=== PATIENT | male | born 1990 | race Caucasian/White ===

== ENCOUNTER 2016-05-10 23:04 | Emergency (ER) | payer OTHER ==
--- NOTE | 2016-05-11 02:58 | ED NURSING NOTES ---
Clinical Report - Nurses [facility] [address] [place] [address] 05/10/2016 23:06 Patient: MARISELA SAM TRIAGE Triage time 23:14. Acuity: LEVEL 3. Chief Complaint: ABDOMINAL PAIN. --23:17 Salvatore Miranda R.N. 23:11 05/10/16. BP: 122/84. HR: 106. RR: 16. O2 saturation: 100%. Temp: 98.2 F. Pain level now 10/22. --23:17 Salvatore Miranda R.N. Weight: 108.8 kg stated. Height/Length: 72 inches Per Patient. BMI: 32.6. --23:12 Salvatore Miranda R.N. Medications Albuterol Sulfate HFA Inhalation. --23:15 Salvatore Miranda R.N. Medication/allergy information source: the patient. --23:17 Salvatore Miranda R.N. Allergies Amoxicillin. --23:15 Salvatore Miranda R.N. History Arrived by private vehicle. Historian: patient. This started just prior to arrival. ( Pt woke up due to lower back pain and left sided flank pain. Last bm was this am and was dark, but not black or bloody stool. Pt has pain on urination about a week ago, but denies any pain on urination at this time. Pt denied any discharge from the penis. No n/v/d.). He has had abdominal pain. 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 PAST MEDICAL HX: Immunizations: up-to-date. SOCIAL HX: Never smoker. History of occasional drug use: marijuana. Recently used drugs days ago. No alcohol use. --23:17 Salvatore Miranda R.N. Interventions ID band on patient. To treatment room. --23:17 Salvatore Miranda R.N. PHYSICAL ASSESSMENT GENERAL / NEURO / PSYCH: Alert. Oriented X 4. Appears in no acute distress. HEENT: Mucous membranes are pink. RESPIRATORY: Respirations not labored. Breath sounds within normal limits. CVS: Normal sinus rhythm noted. Capillary refill less than 2 seconds. GI / : Abdomen soft and nontender. Bowel sounds within normal limits. Normal genitalia. ( Last bm was this am and dark in color.). SKIN: Skin is warm and dry. --23:18 Salvatore Miranda R.N. NURSING PROGRESS NOTES The plan of care for this patient has been created. Patient gowned. Head of bed elevated. Two patient identifiers checked. Call light placed in reach. Side rails up x 1. Bed placed in lowest position. --23:19 Salvatore Miranda R.N. 23:21 05/10/2016 Site #1 started via IV in the left antecubital space with an 18g angiocath, with aseptic technique and good blood return; one attempt. Blood drawn: rainbow set. Labeled in the presence of the patient and sent to the lab. Saline lock flushed with 10 mL saline. --23:21 Salvatore Miranda R.N. 00:54 05/11/16. BP: 121/68. HR: 97. RR: 15. O2 saturation: 99%. Pain level now 5/10. --00:55 Salvatore Miranda R.N. ( Pt is laying in bed and no increase in pain.). --00:55 Salvatore Miranda R.N. 02:56 05/11/2016 Started 500 mg of Levaquin (Levofloxacin) IVPB; at 100 mL/hr over 1 hour(s) via site #1 via IV pump. Allergies verified and confirmed 5 rights. IV patency established. IV site checked: no pain, redness, or swelling. IV flushed thoroughly pre- and post-medication administration. --02:56 Salvatore Miranda R.N. 03:45 05/11/2016 Levaquin IVPB Discontinued: bag #1 completed upon discharge. Total amount infused: 100 mL. IV patency established. IV site checked: no pain, redness, or swelling. IV flushed thoroughly. --03:45 Salvatore Miranda R.N. DISPOSITION / DISCHARGE 03:45 05/11/2016 Site #1 removed upon discharge. Catheter intact. Bandaid applied. --03:48 Salvatore Miranda R.N. Departure time: 03:48. Condition at departure: improved. No learning barriers present. Discharge instructions provided and reviewed with the patient. Reviewed warnings. Reviewed medication(s). Treatments reviewed. Patient verbalized understanding. Written instructions provided in Libyan. The patient was discharged by the physician. He was discharged home and accompanied by spouse. He left the Emergency Department ambulatory and via private vehicle. Patient driving. --03:51 Salvatore Miranda R.N. 03:45 05/11/16. BP: 124/81. HR: 65. RR: 15. O2 saturation: 98%. Pain level now 07/23. --03:51 Salvatore Miranda R.N. Locked/Released at 05/11/2016 3:52 by Salvatore Miranda R.N.
--- NOTE | 2016-05-11 02:58 | ED ORDER SUMMARY ---
..... Patient: MARISELA SAM OrderSheet [facility] VisitID: [id number] [address] [place] [address] 25y, M Registration Date/Time: 05/10/2016 ORDER SHEET Weight: 108.8 kg (stated) Allergies: Amoxicillin GENERAL ORDERS: CBC w Diff Urgent (23:43 05/10/2016 Roni Rome) (23:48 TLewis R.N.) CMP Urgent (23:43 05/10/2016 Roni Rome) (23:48 TLewis R.N.) UA-Culture if indicated Urgent (23:43 05/10/2016 Roni Rome) (Ack 23:49 Taiwo ER Pricing Manager) (2:53 TLewis R.N.) Amylase Urgent (23:43 05/10/2016 Roni Rome) (23:48 TLewis R.N.) Lipase Urgent (23:43 05/10/2016 Roni Rome) (23:48 TLewis R.N.) CT Abd/Pel wo Cont Urgent (00:30 05/11/2016 Roni Rome) (Ack 0:33 Taiwo ER Pricing Manager) (1:11 Jaspal) MEDICATION ORDERS: IV FLUIDS: IV Saline Lock (23:43 05/10/2016 Roni Rome) (23:48 TLewis R.N.) Levaquin IV 500 mg/100mL (NOW) (02:41 05/11/2016 Roni Rome) (2:56 TLewis R.N.) ORDER SHEET NOTES: [Electronically signed by Salvatore Miranda R.N. (03:52 05/11/2016)] [Electronically signed by Vijay Burton Dr. (05:01 05/11/2016)] [Electronically locked/signed by Salvatore Miranda R.N. (03:52 05/11/2016)]
--- NOTE | 2016-05-11 02:58 | ED CLINICAL REPORT ---
Clinical Report - Physicians/Mid Levels [facility] [address] [place] [address] 05/10/2016 23:06 Patient: MARISELA SAM Time Seen: 23:10; initial patient contact. Arrived- By private vehicle. Historian- patient. HISTORY OF PRESENT ILLNESS Chief Complaint: FLANK PAIN. This started today and is still present. It was gradual in onset and has been constant. At its maximum, severity described as mild. When seen in the E.D., severity described as mild. Modifying factors. Not worsened by anything. Not relieved by anything. It is described as sharp. No radiation. It is described as located in the left abdomen and the left flank. No nausea, loss of appetite, vomiting or diarrhea. Similar symptoms previously: None. Recent medical care: Not recently seen/assessed. REVIEW OF SYSTEMS No constipation, difficulty with urination, urinary frequency, fever or chills. He has had pain on urination. All systems otherwise negative, except as recorded above. PAST HISTORY Asthma. Surgeries: No history of previous surgery. Additional Surgeries: no known surgeries. Medications: Albuterol Sulfate HFA Inhalation. Allergies: Amoxicillin. SOCIAL HISTORY Never smoker. History of occasional drug use: marijuana. No alcohol use. ADDITIONAL NOTES The nursing notes have been reviewed with agreement regarding the chief complaint, PMH and patient medications and allergies. PHYSICAL EXAM Vital Signs: 05/10/2016 23:11 BP: 122/84. HR: 106. RR: 16. O2 saturation: 100%. Temp: 98.2 F. Have been reviewed. Blood pressure normal. Tachycardic. Respiratory rate normal. Temperature normal. Oxygen saturation normal. Appearance: Alert. Oriented X3. No acute distress. Eyes: Eyes normal inspection. ENT: Pharynx normal. CVS: Normal heart rate and rhythm. Heart sounds normal. Respiratory: No respiratory distress. Breath sounds normal. Abdomen: Soft. Mild tenderness in the left side of the abdomen. No guarding or rebound tenderness. Bowel sounds normal. No organomegaly. No mass. Back: Normal inspection. No CVA tenderness. Skin: Skin warm and dry. Normal skin color. No rash. Extremities: No lower extremity edema. Neuro: Oriented X 3. LABS, X-RAYS, AND EKG Abdominal CT: Mild changes of bilateral collecting system, ? UTI. Study type: renal stone evaluation. Abdominal CT performed without contrast. Laboratory Tests: UA-Culture if indicated: (ZAIRA: 05/10/2016 22:30) ( [facility] 05[facility]11[facility] 00:59) Final results Test Result Flag Units (Reference) URINE COLOR YELLOW URINE APPEARANCE CLEAR URINE GLUCOSE NEGATIVE (NEGATIVE) URINE BILIRUBIN NEGATIVE (NEGATIVE) URINE KETONE 1+ (NEGATIVE) URINE SPECIFIC GRAVITY 1.020 (1.010-1.030) URINE PH 5.5 (5.0-8.0) URINE PROTEIN 1+ (NEGATIVE) URINE UROBILINOGEN 0.2 EU/dL (0.2-1.0) URINE NITRITE NEGATIVE (NEGATIVE) URINE BLOOD 3+ (NEGATIVE) URINE LEUK ESTERASE POSITIVE (NEGATIVE) URINE RBC 50-75 rbc/hpf (0-1) URINE WBC 50-75 wbc/hpf (0-1) URINE EPITHELIAL CELLS 1-3 EPI/hpf (0-5) URINE BACTERIA MODERATE (2+ TO 3+) (NONE SEEN) URINE COMMENT CULTURE INDICATED URINE CULTURES ARE SET-UP BASED ON THE FOLLOWING CRITERIA:POSITIVE NITRITEPOSITIVE LEUKOCYTE ESTERASEGREATER THAN 10 WHITE BLOOD CELLSMODERATE (2+) OR GREATER BACTERIA CBC w Diff: (ZAIRA: 05/10/2016 22:30) ( [facility] 05/10/2016 23:59) Final results Test Result Flag Units (Reference) WHITE BLOOD COUNT 9.6 K/uL (4.5-11.5) RED BLOOD COUNT 5.43 M/uL (4.50-5.90) HEMOGLOBIN 16.1 gm/dL (13.5-17.5) HEMATOCRIT 47.2 % (41.0-53.0) MEAN CELL VOLUME 87 fL (80-100) MEAN CORPUSCULAR HGB 30 pg (26-34) MEAN CORPUSCULAR HGB CONC 34 g/dL (31-37) RED CELL DISTRIBUTION WIDTH 12.8 % (11.6-14.8) PLATELET COUNT 276 K/uL (150-400) NEUTROPHIL % 74.7 % (50-75) LYMPH % 17.1 L % (25-40) MONO % 6.5 % (3-14) EOSINOPHIL % 1.5 % (0-4) BASOPHIL % 0.2 % (0-2) CMP: (ZAIRA: 05/10/2016 22:30) ( MsgRcvd 05/11/2016 00:06) Final results Test Result Flag Units (Reference) GLUCOSE 98 mg/dL (70-110) BUN 20 H mg/dL (7-18) CREATININE 1.1 mg/dL (0.6-1.3) Estimated GFR >60 mL/min Estimated GFR- >60 mL/min Note: Persistent reduction over 3 months in eGFR<60 mL/min/1.73 m2 defines CKD. Patients with eGFR values>=60 mL/min/1.73 m2 may also have CKD if evidence ofpersistent proteinuria. Additional information may be foundat www.kidney.org. SODIUM 140 mmol/L (136-145) POTASSIUM 3.5 mmol/L (3.5-5.1) CHLORIDE 102 mmol/L (98-107) CARBON DIOXIDE 29 mmol/L (21-32) CALCIUM 8.8 mg/dL (8.5-10.1) TOTAL PROTEIN 8.0 g/dL (6.4-8.2) ALBUMIN 4.3 g/dL (3.3-5.0) BILIRUBIN, TOTAL 0.3 mg/dL (0.0-1.0) ALKALINE PHOSPHATASE 71 U/L (46-116) AST (SGOT) 23 U/L (15-37) ALT (SGPT) 48 U/L (12-78) LIPASE 161 U/L (73-393) AMYLASE 40 U/L (25-115) . PROGRESS AND PROCEDURES Disposition: Discharged home in good condition. Condition: good. CLINICAL IMPRESSION Acute urinary tract infection with cystitis. INSTRUCTIONS Prescription Medications: Levaquin 500 mg: take 1 tab orally every day for 7 days. No refills. Substitution is permissible. Follow-up: Screening today revealed the patient's blood pressure to be in the pre-hypertensive range. The patient should follow up with a primary care provider for blood pressure management. Follow-up with: Nilton Valentino MD, [facility], , [facility], [address] [place] [address], [place] [phone] Follow up in about four days. Call for an appointment. (Electronically signed by Vijay Burton Dr. 05/11/2016 5:01)
--- NOTE | 2016-05-11 02:58 | ED NURSING NOTES ---
Clinical Report - Nurses [facility] [address] [place] [address] 05/10/2016 23:06 Patient: MARISELA SAM TRIAGE Triage time 23:14. Acuity: LEVEL 3. Chief Complaint: ABDOMINAL PAIN. --23:17 Salvatore Miranda R.N. 23:11 05/10/16. BP: 122/84. HR: 106. RR: 16. O2 saturation: 100%. Temp: 98.2 F. Pain level now 10/22. --23:17 Salvatore Miranda R.N. Weight: 108.8 kg stated. Height/Length: 72 inches Per Patient. BMI: 32.6. --23:12 Salvatore Miranda R.N. Medications Albuterol Sulfate HFA Inhalation. --23:15 Salvatore Miranda R.N. Medication/allergy information source: the patient. --23:17 Salvatore Miranda R.N. Allergies Amoxicillin. --23:15 Salvatore Miranda R.N. History Arrived by private vehicle. Historian: patient. This started just prior to arrival. ( Pt woke up due to lower back pain and left sided flank pain. Last bm was this am and was dark, but not black or bloody stool. Pt has pain on urination about a week ago, but denies any pain on urination at this time. Pt denied any discharge from the penis. No n/v/d.). He has had abdominal pain. 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 PAST MEDICAL HX: Immunizations: up-to-date. SOCIAL HX: Never smoker. History of occasional drug use: marijuana. Recently used drugs days ago. No alcohol use. --23:17 Salvatore Miranda R.N. Interventions ID band on patient. To treatment room. --23:17 Salvatore Miranda R.N. PHYSICAL ASSESSMENT GENERAL / NEURO / PSYCH: Alert. Oriented X 4. Appears in no acute distress. HEENT: Mucous membranes are pink. RESPIRATORY: Respirations not labored. Breath sounds within normal limits. CVS: Normal sinus rhythm noted. Capillary refill less than 2 seconds. GI / : Abdomen soft and nontender. Bowel sounds within normal limits. Normal genitalia. ( Last bm was this am and dark in color.). SKIN: Skin is warm and dry. --23:18 Salvatore Miranda R.N. NURSING PROGRESS NOTES The plan of care for this patient has been created. Patient gowned. Head of bed elevated. Two patient identifiers checked. Call light placed in reach. Side rails up x 1. Bed placed in lowest position. --23:19 Salvatore Miranda R.N. 23:21 05/10/2016 Site #1 started via IV in the left antecubital space with an 18g angiocath, with aseptic technique and good blood return; one attempt. Blood drawn: rainbow set. Labeled in the presence of the patient and sent to the lab. Saline lock flushed with 10 mL saline. --23:21 Salvatore Miranda R.N. 00:54 05/11/16. BP: 121/68. HR: 97. RR: 15. O2 saturation: 99%. Pain level now 5/10. --00:55 Salvatore Miranda R.N. ( Pt is laying in bed and no increase in pain.). --00:55 Salvatore Miranda R.N. 02:56 05/11/2016 Started 500 mg of Levaquin (Levofloxacin) IVPB; at 100 mL/hr over 1 hour(s) via site #1 via IV pump. Allergies verified and confirmed 5 rights. IV patency established. IV site checked: no pain, redness, or swelling. IV flushed thoroughly pre- and post-medication administration. --02:56 Salvatore Miranda R.N. 03:45 05/11/2016 Levaquin IVPB Discontinued: bag #1 completed upon discharge. Total amount infused: 100 mL. IV patency established. IV site checked: no pain, redness, or swelling. IV flushed thoroughly. --03:45 Salvatore Miranda R.N. DISPOSITION / DISCHARGE 03:45 05/11/2016 Site #1 removed upon discharge. Catheter intact. Bandaid applied. --03:48 Salvatore Miranda R.N. Departure time: 03:48. Condition at departure: improved. No learning barriers present. Discharge instructions provided and reviewed with the patient. Reviewed warnings. Reviewed medication(s). Treatments reviewed. Patient verbalized understanding. Written instructions provided in [place]. The patient was discharged by the physician. He was discharged home and accompanied by spouse. He left the Emergency Department ambulatory and via private vehicle. Patient driving. --03:51 Salvatore Miranda R.N. 03:45 05/11/16. BP: 124/81. HR: 65. RR: 15. O2 saturation: 98%. Pain level now 07/23. --03:51 Salvatore Miranda R.N. Locked/Released at 05/11/2016 3:52 by Salvatore Miranda R.N.
--- NOTE | 2016-05-11 02:58 | ED ORDER SUMMARY ---
..... Patient: MARISELA SAM OrderSheet [facility] VisitID: [id number] [address] [place] [address] 25y, M Registration Date/Time: 05/10/2016 ORDER SHEET Weight: 108.8 kg (stated) Allergies: Amoxicillin GENERAL ORDERS: CBC w Diff Urgent (23:43 05/10/2016 Roni Rome) (23:48 TLewis R.N.) CMP Urgent (23:43 05/10/2016 Roni Rome) (23:48 TLewis R.N.) UA-Culture if indicated Urgent (23:43 05/10/2016 Roni Rome) (Ack 23:49 Taiwo ER Public Services Assistant) (2:53 TLewis R.N.) Amylase Urgent (23:43 05/10/2016 Roni Rome) (23:48 TLewis R.N.) Lipase Urgent (23:43 05/10/2016 Roni Rome) (23:48 TLewis R.N.) CT Abd/Pel wo Cont Urgent (00:30 05/11/2016 Roni Rome) (Ack 0:33 Taiwo ER Public Services Assistant) (1:11 Jaspal) MEDICATION ORDERS: IV FLUIDS: IV Saline Lock (23:43 05/10/2016 Roni Rome) (23:48 TLewis R.N.) Levaquin IV 500 mg/100mL (NOW) (02:41 05/11/2016 Roni Rome) (2:56 TLewis R.N.) ORDER SHEET NOTES: [Electronically signed by Salvatore Miranda R.N. (03:52 05/11/2016)] [Electronically signed by Vijay Burton Dr. (05:01 05/11/2016)] [Electronically locked/signed by Salvatore Miranda R.N. (03:52 05/11/2016)]
--- NOTE | 2016-05-11 02:58 | ED CLINICAL REPORT ---
Clinical Report - Physicians/Mid Levels [facility] [address] [place] [place] [address] 05/10/2016 23:06 Patient: MARISELA SAM Time Seen: 23:10; initial patient contact. Arrived- By private vehicle. Historian- patient. HISTORY OF PRESENT ILLNESS Chief Complaint: FLANK PAIN. This started today and is still present. It was gradual in onset and has been constant. At its maximum, severity described as mild. When seen in the E.D., severity described as mild. Modifying factors. Not worsened by anything. Not relieved by anything. It is described as sharp. No radiation. It is described as located in the left abdomen and the left flank. No nausea, loss of appetite, vomiting or diarrhea. Similar symptoms previously: None. Recent medical care: Not recently seen/assessed. REVIEW OF SYSTEMS No constipation, difficulty with urination, urinary frequency, fever or chills. He has had pain on urination. All systems otherwise negative, except as recorded above. PAST HISTORY Asthma. Surgeries: No history of previous surgery. Additional Surgeries: no known surgeries. Medications: Albuterol Sulfate HFA Inhalation. Allergies: Amoxicillin. SOCIAL HISTORY Never smoker. History of occasional drug use: marijuana. No alcohol use. ADDITIONAL NOTES The nursing notes have been reviewed with agreement regarding the chief complaint, PMH and patient medications and allergies. PHYSICAL EXAM Vital Signs: 05/10/2016 23:11 BP: 122/84. HR: 106. RR: 16. O2 saturation: 100%. Temp: 98.2 F. Have been reviewed. Blood pressure normal. Tachycardic. Respiratory rate normal. Temperature normal. Oxygen saturation normal. Appearance: Alert. Oriented X3. No acute distress. Eyes: Eyes normal inspection. ENT: Pharynx normal. CVS: Normal heart rate and rhythm. Heart sounds normal. Respiratory: No respiratory distress. Breath sounds normal. Abdomen: Soft. Mild tenderness in the left side of the abdomen. No guarding or rebound tenderness. Bowel sounds normal. No organomegaly. No mass. Back: Normal inspection. No CVA tenderness. Skin: Skin warm and dry. Normal skin color. No rash. Extremities: No lower extremity edema. Neuro: Oriented X 3. LABS, X-RAYS, AND EKG Abdominal CT: Mild changes of bilateral collecting system, ? UTI. Study type: renal stone evaluation. Abdominal CT performed without contrast. Laboratory Tests: UA-Culture if indicated: (ZAIRA: 05/10/2016 22:30) ( [facility] 05/11/2016 00:59) Final results Test Result Flag Units (Reference) URINE COLOR YELLOW URINE APPEARANCE CLEAR URINE GLUCOSE NEGATIVE (NEGATIVE) URINE BILIRUBIN NEGATIVE (NEGATIVE) URINE KETONE 1+ (NEGATIVE) URINE SPECIFIC GRAVITY 1.020 (1.010-1.030) URINE PH 5.5 (5.0-8.0) URINE PROTEIN 1+ (NEGATIVE) URINE UROBILINOGEN 0.2 EU/dL (0.2-1.0) URINE NITRITE NEGATIVE (NEGATIVE) URINE BLOOD 3+ (NEGATIVE) URINE LEUK ESTERASE POSITIVE (NEGATIVE) URINE RBC 50-75 rbc/hpf (0-1) URINE WBC 50-75 wbc/hpf (0-1) URINE EPITHELIAL CELLS 1-3 EPI/hpf (0-5) URINE BACTERIA MODERATE (2+ TO 3+) (NONE SEEN) URINE COMMENT CULTURE INDICATED URINE CULTURES ARE SET-UP BASED ON THE FOLLOWING CRITERIA:POSITIVE NITRITEPOSITIVE LEUKOCYTE ESTERASEGREATER THAN 10 WHITE BLOOD CELLSMODERATE (2+) OR GREATER BACTERIA CBC w Diff: (ZAIRA: 05/10/2016 22:30) ( [facility] 05/10/2016 23:59) Final results Test Result Flag Units (Reference) WHITE BLOOD COUNT 9.6 K/uL (4.5-11.5) RED BLOOD COUNT 5.43 M/uL (4.50-5.90) HEMOGLOBIN 16.1 gm/dL (13.5-17.5) HEMATOCRIT 47.2 % (41.0-53.0) MEAN CELL VOLUME 87 fL (80-100) MEAN CORPUSCULAR HGB 30 pg (26-34) MEAN CORPUSCULAR HGB CONC 34 g/dL (31-37) RED CELL DISTRIBUTION WIDTH 12.8 % (11.6-14.8) PLATELET COUNT 276 K/uL (150-400) NEUTROPHIL % 74.7 % (50-75) LYMPH % 17.1 L % (25-40) MONO % 6.5 % (3-14) EOSINOPHIL % 1.5 % (0-4) BASOPHIL % 0.2 % (0-2) CMP: (ZAIRA: 05/10/2016 22:30) ( MsgRcvd 05/11/2016 00:06) Final results Test Result Flag Units (Reference) GLUCOSE 98 mg/dL (70-110) BUN 20 H mg/dL (7-18) CREATININE 1.1 mg/dL (0.6-1.3) Estimated GFR >60 mL/min Estimated GFR- >60 mL/min Note: Persistent reduction over 3 months in eGFR<60 mL/min/1.73 m2 defines CKD. Patients with eGFR values>=60 mL/min/1.73 m2 may also have CKD if evidence ofpersistent proteinuria. Additional information may be foundat www.kidney.org. SODIUM 140 mmol/L (136-145) POTASSIUM 3.5 mmol/L (3.5-5.1) CHLORIDE 102 mmol/L (98-107) CARBON DIOXIDE 29 mmol/L (21-32) CALCIUM 8.8 mg/dL (8.5-10.1) TOTAL PROTEIN 8.0 g/dL (6.4-8.2) ALBUMIN 4.3 g/dL (3.3-5.0) BILIRUBIN, TOTAL 0.3 mg/dL (0.0-1.0) ALKALINE PHOSPHATASE 71 U/L (46-116) AST (SGOT) 23 U/L (15-37) ALT (SGPT) 48 U/L (12-78) LIPASE 161 U/L (73-393) AMYLASE 40 U/L (25-115) . PROGRESS AND PROCEDURES Disposition: Discharged home in good condition. Condition: good. CLINICAL IMPRESSION Acute urinary tract infection with cystitis. INSTRUCTIONS Prescription Medications: Levaquin 500 mg: take 1 tab orally every day for 7 days. No refills. Substitution is permissible. Follow-up: Screening today revealed the patient's blood pressure to be in the pre-hypertensive range. The patient should follow up with a primary care provider for blood pressure management. Follow-up with: Nilton Valentino MD, Family [facility], , [facility], [address] [place] [address], [place] [id number] Follow up in about four days. Call for an appointment. (Electronically signed by Vijay Burton Dr. 05/11/2016 5:01)
--- NOTE | 2016-05-11 05:01 | ED MAR SUMMARY ---
..... Medication Administration [facility] [address] [place] [address] Patient: MARISELA SAM Visit ID: [id number] 25y, M Weight: 108.8 kg Height/Length: 72 in BMI: 32.6 ALLERGIES: Amoxicillin Start 02:56 05/11/2016 Salvatore Miranda R.N., Stop 03:45 05/11/2016 Salvatore Miranda R.N. Medication Administered: LEVAQUIN [IVPB] (LEVOFLOXACIN), Dose: 500 mg IVPB over 1 hour(s), Rate: 100 mL/hr, Site: #1 left AC. Medication Ordered: Levaquin IV 500 mg/100mL (NOW).
--- NOTE | 2016-05-11 05:01 | ED DISCHARGE INSTRUCTIONS ---
Patient: MARISELA SAM General Instructions [facility] VisitID: [id number] [place] [address] 25y, M Registration Date/Time: 05/10/2016 Acute urinary tract infection with cystitis. INSTRUCTIONS Prescription Medications: Levaquin 500 mg: take 1 tab orally every day for 7 days. No refills. Substitution is permissible. Follow-up: Screening today revealed the patient's blood pressure to be in the pre-hypertensive range. The patient should follow up with a primary care provider for blood pressure management. Follow-up with: Nilton Valentino MD, [facility], , [facility], [address] [place], [place] [id number] Follow up in about four days. Call for an appointment. ADDITIONAL INFORMATION Bladder Infection,Male (Adult) A bladder infection ("cystitis" or "UTI") usually causes a constant urge to urinate, and a burning when passing urine. Urine may be cloudy, smelly or dark. There may be also be pain in the lower abdomen. Cystitis in males is not common. It may be caused by a partial blockage in the urinary system that keeps the bladder from emptying completely. This is most often related to an enlarged prostate gland. Home Care: Drink lots of fluids (at least 6-8 glasses a day). This will flush the bacteria out of your bladder. Avoid sexual intercourse until your symptoms are gone. Avoid caffeine, alcohol, and spicy foods. They could irritate the bladder. A bladder infection is treated with antibiotics. You may also be given Pyridium (generic - phenazopyridine) to reduce burning with urination. This will cause urine to become a bright orange color, which can stain clothing. Follow Up with your doctor or this facility if ALL symptoms have not cleared within five days. It is important to keep your follow up appointment to discuss with your doctor the need for further tests of the urinary tract. Get Prompt Medical Attention if any of the following occur: Fever of 100.4F (38C) or higher, or as directed by your healthcare provider No improvement by the third day of treatment Increasing back or abdominal pain Repeated vomiting; unable to keep medicine down Weakness, dizziness or fainting Levofloxacin Oral tablet What is this medicine? LEVOFLOXACIN (ronel lyons JESSICA menjivar) is a quinolone antibiotic. It is used to treat certain kinds of bacterial infections. It will not work for colds, flu, or other viral infections. How should I use this medicine? Take this medicine by mouth with a full glass of water. Follow the directions on the prescription label. This medicine can be taken with or without food. Take your medicine at regular intervals. Do not take your medicine more often than directed. Do not skip doses or stop your medicine early even if you feel better. Do not stop taking except on your doctor's advice. A special MedGuide will be given to you by the pharmacist with each prescription and refill. Be sure to read this information carefully each time. Talk to your marketing sales supervisor regarding the use of this medicine in children. While this drug may be prescribed for children as young as 6 months for selected conditions, precautions do apply. What side effects may I notice from receiving this medicine? Side effects that you should report to your doctor or health care connector as soon as possible: -allergic reactions like skin rash or hives, swelling of the face, lips, or tongue -changes in vision -confusion, nightmares or hallucinations -difficulty breathing -irregular heartbeat, chest pain -joint, muscle or tendon pain -pain or difficulty passing urine -persistent headache with or without blurred vision -redness, blistering, peeling or loosening of the skin, including inside the mouth -seizures -unusual pain, numbness, tingling, or weakness -vaginal irritation, discharge Side effects that usually do not require medical attention (report to your doctor or health care connector if they continue or are bothersome): -diarrhea -dry mouth -headache -stomach upset, nausea -trouble sleeping What may interact with this medicine? Do not take this medicine with any of the following medications: - arsenic trioxide - chloroquine - droperidol - medicines for irregular heart rhythm like amiodarone, disopyramide, dofetilide, flecainide, quinidine, procainamide, sotalol - some medicines for depression or mental problems like phenothiazines, pimozide, and ziprasidone This medicine may also interact with the following medications: - amoxapine -antacids - cisapride - dairy products - didanosine (ddI) buffered tablets or powder - haloperidol - multivitamins -NSAIDS, medicines for pain and inflammation, like ibuprofen or naproxen - retinoid products like tretinoin or isotretinoin - risperidone - some other antibiotics like clarithromycin or erythromycin - sucralfate - theophylline - warfarin What if I miss a dose? If you miss a dose, take it as soon as you remember. If it is almost time for your next dose, take only that dose. Do not take double or extra doses. Where should I keep my medicine? Keep out of the reach of children. Store at room temperature between 15 and 30 degrees C (59 and 86 degrees F). Keep in a tightly closed container. Throw away any unused medicine after the expiration date. What should I tell my health care provider before I take this medicine? They need to know if you have any of these conditions: cerebral disease irregular heartbeat kidney disease seizure disorder an unusual or allergic reaction to levofloxacin, other antibiotics or medicines, foods, dyes, or preservatives or trying to get breast-feeding What should I watch for while using this medicine? Tell your doctor or health care connector if your symptoms do not improve or if they get worse. Drink several glasses of water a day and cut down on drinks that contain caffeine. You must not get dehydrated while taking this medicine. You may get drowsy or dizzy. Do not drive, use machinery, or do anything that needs mental alertness until you know how this medicine affects you. Do not sit or stand up quickly, especially if you are an older patient. This reduces the risk of dizzy or fainting spells. This medicine can make you more sensitive to the sun. Keep out of the sun. If you cannot avoid being in the sun, wear protective clothing and use a sunscreen. Do not use sun lamps or tanning beds/booths. Contact your doctor if you get a sunburn. If you are a diabetic monitor your blood glucose carefully. If you get an unusual reading stop taking this medicine and call your doctor right away. Do not treat diarrhea with [id number]-[id number] products. Contact your doctor if you have diarrhea that lasts more than 2 days or if the diarrhea is severe and watery. Avoid antacids, calcium, iron, and zinc products for 2 hours before and 2 hours after taking a dose of this medicine. You have been given the following additional information: Bladder Infection, Male (Adult) Levofloxacin Oral tablet (Electronically signed by Vijay Burton Dr. 05/11/2016 5:01)
--- NOTE | 2016-05-11 05:01 | ED MED RECONCILIATION SUMMARY ---
Patient: MARISELA SAM Medication Reconciliation Report [facility] VisitID: [id number] [address] [place] [address] 25y, M Registration Date/Time: 05/10/2016 Weight: 108.8 kg Height/Length: 72 in. BMI: 32.6 ALLERGIES: Amoxicillin The patient's Home Medications are listed below: THE FOLLOWING MEDICATIONS NEED TO BE RECONCILED: Albuterol Sulfate HFA Inhalation The source(s) of the original Home Medication information: patient The following Medications were given to the patient in the Emergency Department: Levaquin [IVPB] IVPB bolus 0, then 500 mg 100 mL/hr, administered: 05/11/2016 2:56:00 AM The following Medications were prescribed to the patient: Levaquin 500 mg: take 1 tab orally every day for 7 days. No refills. Substitution is permissible. -- Vijay Burton Dr.
--- NOTE | 2016-05-11 05:01 | ED MAR SUMMARY ---
..... Medication Administration Record [address] [place] [address] Patient: MARISELA SAM Visit ID: [id number] 25y, M Weight: 108.8 kg Height/Length: 72 in BMI: 32.6 ALLERGIES: Amoxicillin Start 02:56 05/11/2016 Salvatore Miranda R.N., Stop 03:45 05/11/2016 Salvatore Miranda R.N. Medication Administered: LEVAQUIN [IVPB] (LEVOFLOXACIN), Dose: 500 mg IVPB over 1 hour(s), Rate: 100 mL/hr, Site: #1 left AC. Medication Ordered: Levaquin IV 500 mg/100mL (NOW).
--- NOTE | 2016-05-11 05:01 | ED MED RECONCILIATION SUMMARY ---
Patient: MARISELA SAM Medication Reconciliation Report [facility] VisitID: [id number] [address] [place] [address] 25y, M Registration Date/Time: 05/10/2016 Weight: 108.8 kg Height/Length: 72 in. BMI: 32.6 ALLERGIES: Amoxicillin The patient's Home Medications are listed below: THE FOLLOWING MEDICATIONS NEED TO BE RECONCILED: Albuterol Sulfate HFA Inhalation The source(s) of the original Home Medication information: patient The following Medications were given to the patient in the Emergency Department: Levaquin [IVPB] IVPB bolus 0, then 500 mg 100 mL/hr, administered: 05/11/2016 2:56:00 AM The following Medications were prescribed to the patient: Levaquin 500 mg: take 1 tab orally every day for 7 days. No refills. Substitution is permissible. -- Vijay Burton Dr.
--- NOTE | 2016-05-11 05:01 | ED DISCHARGE INSTRUCTIONS ---
Patient: MARISELA SAM General Instructions [facility] VisitID: [id number] [place] [address] 25y, M Registration Date/Time: 05/10/2016 Acute urinary tract infection with cystitis. INSTRUCTIONS Prescription Medications: Levaquin 500 mg: take 1 tab orally every day for 7 days. No refills. Substitution is permissible. Follow-up: Screening today revealed the patient's blood pressure to be in the pre-hypertensive range. The patient should follow up with a primary care provider for blood pressure management. Follow-up with: Nilton Valentino MD, [facility], , [facility], [address] [place], [place] [id number] Follow up in about four days. Call for an appointment. ADDITIONAL INFORMATION Bladder Infection,Male (Adult) A bladder infection ("cystitis" or "UTI") usually causes a constant urge to urinate, and a burning when passing urine. Urine may be cloudy, smelly or dark. There may be also be pain in the lower abdomen. Cystitis in males is not common. It may be caused by a partial blockage in the urinary system that keeps the bladder from emptying completely. This is most often related to an enlarged prostate gland. Home Care: Drink lots of fluids (at least 6-8 glasses a day). This will flush the bacteria out of your bladder. Avoid sexual intercourse until your symptoms are gone. Avoid caffeine, alcohol, and spicy foods. They could irritate the bladder. A bladder infection is treated with antibiotics. You may also be given Pyridium (generic - phenazopyridine) to reduce burning with urination. This will cause urine to become a bright orange color, which can stain clothing. Follow Up with your doctor or this facility if ALL symptoms have not cleared within five days. It is important to keep your follow up appointment to discuss with your doctor the need for further tests of the urinary tract. Get Prompt Medical Attention if any of the following occur: Fever of 100.4F (38C) or higher, or as directed by your healthcare provider No improvement by the third day of treatment Increasing back or abdominal pain Repeated vomiting; unable to keep medicine down Weakness, dizziness or fainting Levofloxacin Oral tablet What is this medicine? LEVOFLOXACIN (ronel lyons JESSICA menjivar) is a quinolone antibiotic. It is used to treat certain kinds of bacterial infections. It will not work for colds, flu, or other viral infections. How should I use this medicine? Take this medicine by mouth with a full glass of water. Follow the directions on the prescription label. This medicine can be taken with or without food. Take your medicine at regular intervals. Do not take your medicine more often than directed. Do not skip doses or stop your medicine early even if you feel better. Do not stop taking except on your doctor's advice. A special MedGuide will be given to you by the pharmacist with each prescription and refill. Be sure to read this information carefully each time. Talk to your air dispatcher regarding the use of this medicine in children. While this drug may be prescribed for children as young as 6 months for selected conditions, precautions do apply. What side effects may I notice from receiving this medicine? Side effects that you should report to your doctor or health personal care home administrator as soon as possible: -allergic reactions like skin rash or hives, swelling of the face, lips, or tongue -changes in vision -confusion, nightmares or hallucinations -difficulty breathing -irregular heartbeat, chest pain -joint, muscle or tendon pain -pain or difficulty passing urine -persistent headache with or without blurred vision -redness, blistering, peeling or loosening of the skin, including inside the mouth -seizures -unusual pain, numbness, tingling, or weakness -vaginal irritation, discharge Side effects that usually do not require medical attention (report to your doctor or health personal care home administrator if they continue or are bothersome): -diarrhea -dry mouth -headache -stomach upset, nausea -trouble sleeping What may interact with this medicine? Do not take this medicine with any of the following medications: - arsenic trioxide - chloroquine - droperidol - medicines for irregular heart rhythm like amiodarone, disopyramide, dofetilide, flecainide, quinidine, procainamide, sotalol - some medicines for depression or mental problems like phenothiazines, pimozide, and ziprasidone This medicine may also interact with the following medications: - amoxapine -antacids - cisapride - dairy products - didanosine (ddI) buffered tablets or powder - haloperidol - multivitamins -NSAIDS, medicines for pain and inflammation, like ibuprofen or naproxen - retinoid products like tretinoin or isotretinoin - risperidone - some other antibiotics like clarithromycin or erythromycin - sucralfate - theophylline - warfarin What if I miss a dose? If you miss a dose, take it as soon as you remember. If it is almost time for your next dose, take only that dose. Do not take double or extra doses. Where should I keep my medicine? Keep out of the reach of children. Store at room temperature between 15 and 30 degrees C (59 and 86 degrees F). Keep in a tightly closed container. Throw away any unused medicine after the expiration date. What should I tell my health care provider before I take this medicine? They need to know if you have any of these conditions: cerebral disease irregular heartbeat kidney disease seizure disorder an unusual or allergic reaction to levofloxacin, other antibiotics or medicines, foods, dyes, or preservatives or trying to get breast-feeding What should I watch for while using this medicine? Tell your doctor or health personal care home administrator if your symptoms do not improve or if they get worse. Drink several glasses of water a day and cut down on drinks that contain caffeine. You must not get dehydrated while taking this medicine. You may get drowsy or dizzy. Do not drive, use machinery, or do anything that needs mental alertness until you know how this medicine affects you. Do not sit or stand up quickly, especially if you are an older patient. This reduces the risk of dizzy or fainting spells. This medicine can make you more sensitive to the sun. Keep out of the sun. If you cannot avoid being in the sun, wear protective clothing and use a sunscreen. Do not use sun lamps or tanning beds/booths. Contact your doctor if you get a sunburn. If you are a diabetic monitor your blood glucose carefully. If you get an unusual reading stop taking this medicine and call your doctor right away. Do not treat diarrhea with [id number] products. Contact your doctor if you have diarrhea that lasts more than 2 days or if the diarrhea is severe and watery. Avoid antacids, calcium, iron, and zinc products for 2 hours before and 2 hours after taking a dose of this medicine. You have been given the following additional information: Bladder Infection, Male (Adult) Levofloxacin Oral tablet (Electronically signed by Vijay Burton Dr. 05/11/2016 5:01)
--- NOTE | 2016-05-11 07:31 | DIAGNOSTIC IMAGING REPORT ---
PROCEDURE: CT ABDOMEN/PELVIS W/O CONTRAST INDICATION: Left flank pain, initial encounter TECHNIQUE: Noncontrast axial images were obtained of the entire abdomen and pelvis with sagittal and coronal reformations. COMPARISON: None. FINDINGS: ABDOMEN: Lung base are clear. Heart size is normal. Punctate nonobstructing left renal calculus. 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 There is no perinephric stranding. Liver, gallbladder, pancreas, spleen, adrenal glands q. day aorta are normal. Nonspecific bowel gas pattern. PELVIS: Normal appendix. Normal bladder. No pelvic mass, inflammatory changes or free fluid. Bones are unremarkable. IMPRESSION: 1. Nonobstructing punctate left renal calculus 2. Bilateral extrarenal pelves and prominent ureters without distal obstructing calculi. This may represent vesicoureteral reflux or normal variation. 3. Preliminary results submitted by Dr. Garduno, [facility] radiology All CT scans at this facility use dose modulation, iterative reconstruction, and/or weight-based dosing when appropriate to reduce radiation dose to as low as reasonably achievable.
== END 2016-05-11 03:48 | disposition home or self-care (01) ==
LOC: ED SRH 23:04
DX: N30.00 Acute cystitis without hematuria (principal); J45.909 Unspecified asthma, uncomplicated; Z88.0 Allergy status to penicillin
CPT/HCPCS: 90004; 90100; 90148; 90469; 92235; 92530; 95059